=== PATIENT | female | born 1975 | race Caucasian/White ===

== ENCOUNTER 2018-09-29 12:08 | Emergency (ER) | payer OTHER ==
[2018-09-29 12:24] VITALS: BP 140/91; PULSE 71; O2SAT 97
--- NOTE | 2018-09-29 12:44 | ERPHSYRPT ---
- History of Present Illness Time Seen by Provider: 09/29/18 12:41 Source: patient Exam Limitations: no limitations Patient Subjective Stated Complaint: Fell down stairs and injured left knee Triage Nursing Assessment: Pt wheeled into the ER, unable to stand on left leg due to knee pain, hx of dislocating left knee cap, indention at the bottom of the knee cap, no swelling, pulses normal, vitals wnl, rates pain 8/10 Physician History: Fell down stairs and injured left knee unable to stand on left leg due to knee pain, hx of dislocating left knee cap, indention at the bottom of the knee cap, no swelling, Method of Injury: fell Occurred: just prior to arrival Quality: constant Severity of Pain-Max: moderate Severity of Pain-Current: moderate Lower Extremities Pain: knee: left Modifying Factors: Improves With: cold therapy Associated Symptoms: snapping sensation Allergies/Adverse Reactions: hydrocodone bitartrate [From Vicodin] Allergy (Mild, Verified 09/29/18 12:26) numbness Home Medications: Aspirin EC 81 mg [Ecotrin 81 mg] 81 mg PO DAILY 09/29/18 [History] Hx Tetanus, Diphtheria Vaccination/Date Given: Yes Hx Influenza Vaccination/Date Given: No Hx Pneumococcal Vaccination/Date Given: No - Review of Systems Constitutional: No Fever, No Chills Eyes: No Symptoms Ears, Nose, & Throat: No Symptoms Respiratory: No Cough, No Dyspnea Cardiac: No Chest Pain, No Edema, No Syncope Abdominal/Gastrointestinal: No Abdominal Pain, No Nausea, No Vomiting, No Diarrhea Genitourinary Symptoms: No Dysuria Musculoskeletal: Fall, Joint Pain, Joint Swelling, No Back Pain, No Neck Pain, No Joint Redness Skin: No Rash Neurological: No Dizziness, No Focal Weakness, No Sensory Changes Psychological: No Symptoms Endocrine: No Symptoms All Other Systems: Reviewed and Negative - Past Medical History Pertinent Past Medical History: No Neurological History: No Pertinent History ENT History: No Pertinent History Cardiac History: No Pertinent History Respiratory History: No Pertinent History Endocrine Medical History: No Pertinent History Musculoskeletal History: No Pertinent History GI Medical History: No Pertinent History History: No Pertinent History Psycho-Social History: No Pertinent History Female Reproductive Disorders: No Pertinent History Other Medical History: hx of cervical cancer - Past Surgical History Past Surgical History: Yes Musculoskeletal: Orthopedic Surgery Other Surgical History: scope on bilateral knees, dislocated knee cap on left - Social History Smoking Status: Never smoker Exposure to second hand smoke: No Drug Use: none Patient Lives Alone: No - Female History Hx Now: No - Nursing Vital Signs Nursing Vital Signs: Initial Vital Signs Temperature 97.9 F 09/29/18 12:10 Pulse Rate 71 09/29/18 12:10 Blood Pressure 140/91 09/29/18 12:10 O2 Sat by Pulse Oximetry 97 09/29/18 12:10 Pain Scale Pain Intensity 8 - Physical Exam General Appearance: no apparent distress Eyes, Ears, Nose, Throat Exam: normal ENT inspection Neck Exam: normal inspection Cardiovascular/Respiratory Exam: chest non-tender Gastrointestinal/Abdominal Exam: non-tender Back Exam: normal inspection Knees Exam: left knee: pain, soft tissue tenderness, swelling SpO2: 97 - Course Nursing assessment & vital signs reviewed: Yes - Radiology Exams Knee X-ray Interpretation: Reviewed by me Ordered Tests: Active Orders 24 hr Category Date Time Status KNEE (3 VIEWS) Stat Exams 09/29/18 12:51 Taken - Progress Progress: improved, pain not gone completely Counseled pt/family regarding: diagnosis, need for follow-up, rad results - Departure Departure Disposition: Home Clinical Impression: Patellar instability of left knee Condition: Stable Critical Care Time: No Referrals: JULIANO ROLAND [Primary Care Provider] - Instructions: Knee Sprain (DC), Patellar Tendinopathy (DC) Additional Instructions: Discharge/Care Plan ADY HOPKINS was seen on 09/29/18 in the Emergency Room. The patient was counseled regarding Diagnosis,Lab results, Imaging studies, need for follow up and when to return to the Emergency Room. Prescriptions given: Discharge Note I have spoken with the patient and/or caregivers. I have explained the patient' s condition, diagnosis and treatment plan based on the information available to me at this time. I have answered the patient's and/or caregiver's questions and addressed any concerns. The patient and/or caregivers have as good understanding of the patient's diagnosis, condition and treatment plan as can be expected at this point. The vital signs have been stable. The patient's condition is stable and appropriate for discharge from the emergency department. The patient will pursue further outpatient evaluation with the primary care physician or other designated or consulting physician as outlined in the discharge instructions. The patient and/or caregivers are agreeable to this plan of care and follow-up instructions have been explained in detail. The patient and/or caregivers have received these instruction. The patient/and or caregivers are aware that any significant change in condition or worsening of symptoms should prompt an immediate return to this or the closest emergency department or call 911.
--- NOTE | 2018-09-29 21:10 | XRAY ---
Indication: Pain following fall. Comparison: November 17, 2015. 3 views of the left knee now demonstrates mild medial joint space narrowing/spurring with stable fabella. No other bony, articular, or soft tissue abnormalities.
== END 2018-09-29 13:08 | disposition home or self-care (01) ==
LOC: ED 12:08
DX: M23.52 Chronic instability of knee, left knee (principal); W10.9XXA Fall (on) (from) unspecified stairs and steps, initial encounter
CPT/HCPCS: 73562; 99283; L1830

== ENCOUNTER 2019-02-13 20:05 | Emergency (ER) | payer BC ==
--- NOTE | 2019-02-13 21:27 | ERPHSYRPT ---
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 Triage Nursing Assessment: PT APPEARS FLUSHED, GAURDING ARM AND HOLDING HEAD STIFF. PT STATES PAIN IS 9/10 IN BACK OF NECK. Physician History: 43 y/o white females presents with left lateral neck and left post shoulder pain. pt was caring for and lifting grandchildren last couple of days. woke up yesterday and pain worse. pt was seen at [facility] and given steroid injection and steroid rx. sx not much better. no fever, no headache. no head or neck injury. Timing/Duration: day(s) (2) Severity: mild (mild to mod) Modifying Factors: Improves With: movement Associated Symptoms: No nausea, No vomiting, No abdominal pain, No shortness of breath, No chest pain, No headaches Allergies/Adverse Reactions: hydrocodone bitartrate [From Vicodin] Allergy (Mild, Verified 02/13/19 20:39) numbness Home Medications: Aspirin EC 81 mg [Ecotrin 81 mg] 81 mg PO DAILY 09/29/18 [History] Hx Tetanus, Diphtheria Vaccination/Date Given: Yes Hx Influenza Vaccination/Date Given: No Hx Pneumococcal Vaccination/Date Given: No - Review of Systems Constitutional: No Symptoms Eyes: No Symptoms Ears, Nose, & Throat: No Symptoms Respiratory: No Symptoms Cardiac: No Symptoms Abdominal/Gastrointestinal: No Symptoms Genitourinary Symptoms: No Symptoms Musculoskeletal: Neck Pain, Other (left post shoulder pain) Skin: No Symptoms Neurological: No Symptoms Psychological: No Symptoms Endocrine: No Symptoms Hematologic/Lymphatic: No Symptoms Immunological/Allergic: No Symptoms All Other Systems: Reviewed and Negative - Past Medical History Pertinent Past Medical History: No Neurological History: No Pertinent History ENT History: No Pertinent History Cardiac History: No Pertinent History Respiratory History: No Pertinent History Endocrine Medical History: No Pertinent History Musculoskeletal History: No Pertinent History GI Medical History: No Pertinent History History: No Pertinent History Psycho-Social History: No Pertinent History Female Reproductive Disorders: No Pertinent History Other Medical History: hx of cervical cancer - Past Surgical History Past Surgical History: Yes Musculoskeletal: Orthopedic Surgery Other Surgical History: scope on bilateral knees, dislocated knee cap on left - Social History Smoking Status: Never smoker Exposure to second hand smoke: No Drug Use: none Patient Lives Alone: No - Female History Hx Last Menstrual Period: 02/13/19 Hx Now: No - Nursing Vital Signs Nursing Vital Signs: Initial Vital Signs Temperature 98.1 F 02/13/19 20:29 Pulse Rate 72 02/13/19 20:29 Respiratory Rate 18 02/13/19 20:29 Blood Pressure 174/107 02/13/19 20:29 O2 Sat by Pulse Oximetry 96 02/13/19 20:29 Pain Scale Pain Intensity 9 - Physical Exam General Appearance: mild distress, alert, anxiety Eye Exam: PERRL/EOMI, eyes nml inspection Ears, Nose, Throat Exam: normal ENT inspection, moist mucous membranes Neck Exam: normal inspection, full range of motion, other (tenderness in distribution of left lateral neck and left trapezius muscle.), No midline tenderness Respiratory Exam: No chest tenderness Gastrointestinal/Abdomen Exam: No tenderness Pelvic Exam: not done Rectal Exam: not done, No decreased tone Back Exam: normal inspection, normal range of motion, No vertebral tenderness Extremity Exam: normal inspection, normal range of motion, pelvis stable Neurologic Exam: alert, oriented x 3, cooperative, superintendent transmission II-XII nml as tested Skin Exam: normal color, warm, dry Lymphatic Exam: No adenopathy SpO2 Interpretation: normal SpO2: 96 - Course Nursing assessment & vital signs reviewed: Yes Ordered Tests: Medication Summary Generic Name Dose Route Start Last Admin Trade Name Freq PRN Reason Stop Dose Admin Hydromorphone HCl 0.5 mg 02/13/19 21:30 Hydromorphone 1 Mg/Ml Ampule IM 02/13/19 21:31 STAT ONE Orphenadrine Citrate 30 mg 02/13/19 21:30 Norflex 60 Mg/2 Ml IM 02/13/19 21:31 STAT ONE - Progress Progress: improved Progress Note: 02/13/19 21:31 pt does not have a true allergy to hydrocodone. Counseled pt/family regarding: diagnosis, need for follow-up - Departure Departure Disposition: Home Clinical Impression: Musculoskeletal neck pain Condition: Stable Critical Care Time: No Referrals: JULIANO ROLAND [Primary Care Provider] - Additional Instructions: add tylenol for pain. continue steroids as prescribed. follow up with primary doctor for persistent symptoms Prescriptions: Carisoprodol 350 mg [Soma 350 mg] 350 mg PO Q8H PRN PRN #10 tablet PRN Reason: Muscle Spasms
[2019-02-13] MEDS ORDERED: Phenergan 25 MG INJ IM ONE (21:29)
[2019-02-13] MEDS ORDERED: Hydromorphone 1 mg/ml Ampule IM ONE (21:30)
[2019-02-13] MEDS ORDERED: Norflex 60 MG/2 ML IM ONE (21:30)
[2019-02-13] MEDS ORDERED: Hydromorphone 1 mg/ml Ampule ONE (21:35)
[2019-02-13] MEDS ORDERED: Norflex 60 MG/2 ML ONE (21:35)
[2019-02-13] MEDS ORDERED: Phenergan 25 MG INJ ONE (21:35)
[2019-02-13 22:03] VITALS: BP 144/84; PULSE 62; O2SAT 98
== END 2019-02-13 22:03 | disposition home or self-care (01) ==
LOC: ED 20:05
DX: M54.2 Cervicalgia (principal)
CPT/HCPCS: 96372; 99284; J1170; J2360; J2550

== ENCOUNTER 2019-02-17 10:19 | Emergency (ER) | payer BC ==
[2019-02-17] MEDS ORDERED: TORAdol 30 mg Injection IM ONE (10:40)
[2019-02-17] MEDS ORDERED: Norflex 60 MG/2 ML IM ONE (10:40)
[2019-02-17] MEDS ORDERED: TORAdol 30 mg Injection ONE (10:45)
[2019-02-17] MEDS ORDERED: Norflex 60 MG/2 ML ONE (10:45)
--- NOTE | 2019-02-17 10:49 | ERPHSYRPT ---
- History of Present Illness Time Seen by Provider: 02/17/19 10:47 Source: patient Exam Limitations: no limitations Patient Subjective Stated Complaint: Neck pain Triage Nursing Assessment: Patient ambulated into ED and transferred self to bed. Patient A+O X 3. Patient's skin pink, warm and dry. Patient complains of neck pain that radiates down left arm for one week. Patient has been seen by doctor and ER with no relief. Patient denies injury. No visible bruising to neck noted. Physician History: Neck pain for 1-2 weeks Patient complains of neck pain that radiates down left arm for one week. Patient has been seen by doctor and ER with no relief. Patient denies injury. No visible bruising to neck noted. Timing/Duration: day(s) Severity: moderate Associated Symptoms: other (pain in left arm) Allergies/Adverse Reactions: hydrocodone bitartrate [From Vicodin] Allergy (Mild, Verified 02/17/19 10:26) numbness Hx Tetanus, Diphtheria Vaccination/Date Given: Yes Hx Influenza Vaccination/Date Given: No Hx Pneumococcal Vaccination/Date Given: No Immunizations Up to Date: Yes - Review of Systems Constitutional: No Symptoms Eyes: No Symptoms Ears, Nose, & Throat: No Symptoms Respiratory: No Symptoms Cardiac: No Symptoms Abdominal/Gastrointestinal: No Symptoms Musculoskeletal: Neck Pain, Other (pain in left arm) - Past Medical History Pertinent Past Medical History: No Neurological History: No Pertinent History ENT History: No Pertinent History Cardiac History: No Pertinent History Respiratory History: No Pertinent History Endocrine Medical History: No Pertinent History Musculoskeletal History: No Pertinent History GI Medical History: No Pertinent History History: No Pertinent History Psycho-Social History: No Pertinent History Female Reproductive Disorders: No Pertinent History Other Medical History: hx of cervical cancer - Past Surgical History Past Surgical History: Yes Musculoskeletal: Orthopedic Surgery Other Surgical History: scope on bilateral knees, dislocated knee cap on left - Social History Smoking Status: Never smoker Exposure to second hand smoke: No Drug Use: none Patient Lives Alone: No - Female History Hx Now: No - Nursing Vital Signs Nursing Vital Signs: Initial Vital Signs Temperature 97.7 F 02/17/19 10:27 Pulse Rate 69 02/17/19 10:27 Respiratory Rate 18 02/17/19 10:27 Blood Pressure 174/112 02/17/19 10:27 O2 Sat by Pulse Oximetry 99 02/17/19 10:27 Pain Scale Pain Intensity 10 - Physical Exam General Appearance: no apparent distress, alert Eye Exam: PERRL/EOMI, eyes nml inspection Ears, Nose, Throat Exam: normal ENT inspection, TMs normal, pharynx normal, moist mucous membranes Neck Exam: normal inspection, non-tender, supple, full range of motion Respiratory Exam: normal breath sounds, lungs clear, No respiratory distress Cardiovascular Exam: regular rate/rhythm, normal heart sounds, normal peripheral pulses Gastrointestinal/Abdomen Exam: soft, normal bowel sounds, No tenderness, No mass Back Exam: normal inspection, normal range of motion, No CVA tenderness, No vertebral tenderness Extremity Exam: normal inspection, normal range of motion, pelvis stable Neurologic Exam: alert, oriented x 3, cooperative, normal mood/affect, nml cerebellar function, nml station & gait, sensation nml, No motor deficits Skin Exam: normal color, warm, dry, No rash Lymphatic Exam: No adenopathy SpO2: 99 - Course Nursing assessment & vital signs reviewed: Yes - Radiology Exams C-Spine X-ray Interpretation: Reviewed by me (narrowing of disc space C5-6) Ordered Tests: Active Orders 24 hr Category Date Time Status CERVICAL SPINE MINIMUM 4 VIEWS Stat Exams 02/17/19 10:40 Ordered Medication Summary Discontinued Medications Generic Name Dose Route Start Last Admin Trade Name Tony PRN Reason Stop Dose Admin Ketorolac Tromethamine 60 mg 02/17/19 10:40 02/17/19 10:46 Toradol 30 Mg Injection IM 02/17/19 10:41 60 mg STAT ONE Administration Ketorolac Tromethamine Confirm 02/17/19 10:45 Toradol 30 Mg Injection Administered 02/17/19 10:46 Dose 60 mg .ROUTE .STK-MED ONE Orphenadrine Citrate 60 mg 02/17/19 10:40 02/17/19 10:47 Norflex 60 Mg/2 Ml IM 02/17/19 10:41 60 mg STAT ONE Administration Orphenadrine Citrate Confirm 02/17/19 10:45 Norflex 60 Mg/2 Ml Administered 02/17/19 10:46 Dose 60 mg .ROUTE .STK-MED ONE - Progress Progress: improved, pain not gone completely Counseled pt/family regarding: diagnosis, need for follow-up, rad results - Departure Departure Disposition: Home Clinical Impression: Radicular pain in left arm, Cervical radiculopathy at C5 Condition: Stable Critical Care Time: No Referrals: JULIANO ROLAND [Primary Care Provider] - Instructions: Cervical Muscle Strain (DC), Radiculopathy (DC), Degenerative Disc Disease (DC) Additional Instructions: Discharge/Care Plan ADY HOPKINS was seen on 02/17/19 in the Emergency Room. The patient was counseled regarding Diagnosis,Lab results, Imaging studies, need for follow up and when to return to the Emergency Room. Prescriptions given: Discharge Note I have spoken with the patient and/or caregivers. I have explained the patient' s condition, diagnosis and treatment plan based on the information available to me at this time. I have answered the patient's and/or caregiver's questions and addressed any concerns. The patient and/or caregivers have as good understanding of the patient's diagnosis, condition and treatment plan as can be expected at this point. The vital signs have been stable. The patient's condition is stable and appropriate for discharge from the emergency department. The patient will pursue further outpatient evaluation with the primary care physician or other designated or consulting physician as outlined in the discharge instructions. The patient and/or caregivers are agreeable to this plan of care and follow-up instructions have been explained in detail. The patient and/or caregivers have received these instruction. The patient/and or caregivers are aware that any significant change in condition or worsening of symptoms should prompt an immediate return to this or the closest emergency department or call 911. Prescriptions: Cyclobenzaprine HCl 10 mg [Flexeril 10 MG] 10 mg PO TID #30 tablet
[2019-02-17 11:42] VITALS: BP 152/104; PULSE 60; O2SAT 100
--- NOTE | 2019-02-17 20:31 | XRAY ---
Indication: Neck pain. Stiffness. Left arm numbness. Comparison: None 5 views of the cervical spine demonstrates cervical lordotic reversal with moderate C5-C6 degenerative disc space loss with endplate spurring and subsequent bilateral foraminal stenosis. Incidental left lung apex calcified granuloma. No other bony, articular, or soft tissue abnormalities.
== END 2019-02-17 11:54 | disposition home or self-care (01) ==
LOC: ED 10:19
DX: M79.605 Pain in left leg (principal); M54.2 Cervicalgia; M54.12 Radiculopathy, cervical region
CPT/HCPCS: 72050; 96372; 99284; J1885; J2360; L0120

== ENCOUNTER 2020-12-08 05:59 | Day surgery (SDC) | payer OTHER ==
[2020-12-08] MEDS ORDERED: CEFAZOLIN 2 GM-D5W BAG** 2 GM/50 ML ML IV SCH (06:00)
[2020-12-08] MEDS ORDERED: Lactated Ringers 1,000 ML IV SCH (06:30)
[2020-12-08] MEDS ORDERED: Sodium Chloride 0.9% 1000 ML 1,000 ML ONE (07:42)
[2020-12-08] MEDS ORDERED: SUBLIMAZE 100 MCG/2 ML ONE ×2 (07:56→08:43)
[2020-12-08] MEDS ORDERED: Versed 2 MG/2 ML Injection ONE (07:57)
[2020-12-08] MEDS ORDERED: TORAdol 30 mg Injection ONE (07:58)
[2020-12-08] MEDS ORDERED: Decadron 4 MG INJ ONE (07:58)
[2020-12-08] MEDS ORDERED: DIPRIVAN 200 MG/20 ML IV ONE (07:58)
[2020-12-08] MEDS ORDERED: Zofran 4 MG/2 ML VIAL ONE (07:58)
[2020-12-08] MEDS ORDERED: Quelicin Fliptop 200 MG/10 ML ONE (08:08)
[2020-12-08] MEDS ORDERED: Lactated Ringers 1,000 ML IV ONE (08:45)
[2020-12-08] MEDS ORDERED: Compazine 10 MG/2 ML IV ONE (10:37)
[2020-12-08 10:46] VITALS: BP 121/75; PULSE 67; O2SAT 98
--- NOTE | 2020-12-09 08:20 | OP ---
SURGERY DATE/TIME: 12/08/2020 0758 PREOPERATIVE DIAGNOSIS: Abnormal uterine bleeding. POSTOPERATIVE DIAGNOSIS: Abnormal uterine bleeding. PROCEDURE: Hysteroscopy D&C with NovaSure ablation. SURGEON: Peña Manrique D.O. RESTAURANT GREETER: Reba Fuentes registered nurse surgical services. ANESTHESIA: General. ESTIMATED BLOOD LOSS: Minimal. COMPLICATIONS: None. INDICATIONS: The risks, benefits, indications and alternatives of the procedure were reviewed with the patient prior to procedure. The patient understood the risk of infection, bleeding, bowel injury, bladder injury, ureteral injury, uterine perforation, pelvic infection associated with the surgery and desires to have this surgery as a possible need to alleviate her current medical condition. DESCRIPTION OF PROCEDURE AND FINDINGS: At this point the patient is taken to the operating room, given general sedation, placed in dorsal lithotomy position, prepped and draped in the usual sterile fashion. A weighted speculum is then placed in the patient's vagina and the anterior lip of the cervix is grasped with a single tooth tenaculum. Endocervical dilators advanced through the endocervical canal as a means to dilate the cervix and the uterus was sounded to approximately 9 cm. From this point a hysteroscope was then placed in through the endocervical canal where visualization of the endometrial lining appeared to be within normal limits with no gross abnormalities. From this point the hysteroscope was removed and a curette was then placed into the fundus of the uterus and curettage was performed in all quadrants of the uterus retrieving a mild amount of tissue. From this point the NovaSure instrument was then placed into the fundus of the uterus with an in depth length of 6.5 cm and a width of 3.7 cm, was engaged and the machine was turned on for 1 minute and 1 second. At the completion of the ablation the instrument was disengaged and removed from the uterine cavity without complication. From this point all instruments were removed from the patient's vaginal region. The patient was then taken out of the dorsal lithotomy position, was taken out of anesthesia and was then taken to the recovery room in stable condition. All instruments and laps were accounted for x2.
== END 2020-12-08 11:06 | disposition home or self-care (01) ==
LOC: SDC 05:59
PROVIDERS: ATTEND Obstetrics & Gynecology
DX: N93.9 Abnormal uterine and vaginal bleeding, unspecified (principal)
CPT/HCPCS: 58558; 84703; 88305; 96374; J0330; J0690; J1100; J1885; J2250; J2405; J2704; J3010

== ENCOUNTER 2021-09-19 00:05 | Emergency (ER) | payer OTHER ==
[2021-09-19 01:32] VITALS: O2SAT 99
--- NOTE | 2021-09-19 01:44 | ERPHSYRPT ---
- History of Present Illness Source: patient Exam Limitations: no limitations Patient Subjective Stated Complaint: Left ankle pain, unable to stand on left foot due to this. [place] a pop while stepping to the side and has not been able to bear weight since. Triage Nursing Assessment: Left ankle pain present 06/13. No edema, erythema, or ecchymosis present. Bilateral pedal pulses present and equal. Physician History: 46 yo wf twisted L ankle at 21:00. Pt denies other/previous injury. Method of Injury: twisted Occurred: other (21:00) Quality: aching Severity of Pain-Max: moderate Severity of Pain-Current: moderate Lower Extremities Pain: ankle: left Modifying Factors: Improves With: movement Associated Symptoms: unable to bear weight, snapping sensation, popping sensation Allergies/Adverse Reactions: hydrocodone bitartrate [From Vicodin] Allergy (Mild, Verified 09/19/21 01:20) numbness Home Medications: Meloxicam 15 mg PO DAILY PRN PRN 12/08/20 [History] Aspirin 81 mg PO DAILY 09/19/21 [History] Hx Tetanus, Diphtheria Vaccination/Date Given: Yes Hx Influenza Vaccination/Date Given: No Hx Pneumococcal Vaccination/Date Given: No Travel Risk - International Travel Have you traveled outside of the country in past 3 weeks: No - Coronavirus Screening Are you exhibiting any of the following symptoms?: No Close contact with a COVID-19 positive Pt in past 14-21 Days: No - Vaccine Status Have you recieved a Covid-19 vaccination: No - Review of Systems Constitutional: No Symptoms Eyes: No Symptoms Ears, Nose, & Throat: No Symptoms Respiratory: No Symptoms Cardiac: No Symptoms Abdominal/Gastrointestinal: No Symptoms Genitourinary Symptoms: No Symptoms Skin: No Symptoms Neurological: No Symptoms Psychological: No Symptoms Endocrine: No Symptoms Hematologic/Lymphatic: No Symptoms Immunological/Allergic: No Symptoms - Past Medical History Pertinent Past Medical History: No Neurological History: No Pertinent History ENT History: No Pertinent History Cardiac History: No Pertinent History Respiratory History: No Pertinent History Endocrine Medical History: No Pertinent History Musculoskeletal History: Osteoarthritis GI Medical History: No Pertinent History History: No Pertinent History Psycho-Social History: No Pertinent History Female Reproductive Disorders: Abnormal Uterine Bleeding Other Medical History: 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 UTERINE ABLATION 11/2021. ARTHROSCOPIC SURGERY BILATERAL KNEE - 2013 AND 2008 - Past Surgical History Past Surgical History: Yes Neuro Surgical History: No Pertinent History Cardiac: No Pertinent History Respiratory: No Pertinent History Gastrointestinal: No Pertinent History Genitourinary: No Pertinent History Musculoskeletal: Orthopedic Surgery Female Surgical History: No Pertinent History Other Surgical History: scope on bilateral knees, dislocated knee cap on left - Social History Smoking Status: Former smoker How long have you smoked: unsure Exposure to second hand smoke: No Drug Use: none Patient Lives Alone: No Significant Family History: no pertinent family hx - Female History Hx Now: No - Nursing Vital Signs Nursing Vital Signs: Initial Vital Signs Temperature 98.8 F 09/19/21 01:22 Pulse Rate 70 09/19/21 01:22 Respiratory Rate 18 09/19/21 01:22 O2 Sat by Pulse Oximetry 99 09/19/21 01:22 Pain Scale Pain Intensity 4 WNL - Physical Exam General Appearance: no apparent distress Eyes, Ears, Nose, Throat Exam: normal ENT inspection, TMs normal, pharynx normal, moist mucous membranes Neck Exam: normal inspection, non-tender, supple, full range of motion, No Brudzinski, No Kernig's, No meningismus, No carotid bruit Cardiovascular/Respiratory Exam: normal breath sounds, regular rate/rhythm, heart sounds normal Gastrointestinal/Abdominal Exam: non-tender, soft Back Exam: normal inspection, normal range of motion, No vertebral tenderness Hips Exam: bilateral: non-tender, normal inspection, normal range of motion, no evidence of injury Legs Exam: bilateral leg: non-tender, normal inspection, normal range of motion, no evidence of injury Knees Exam: bilateral knee: non-tender, normal inspection, normal range of motion, no evidence of injury Ankle Exam: left ankle: soft tissue tenderness (L ankle w mild edema/TTP laterally and medially/Good pedal pulse, distal sensation, and capillary return) Foot Exam: bilateral foot: non-tender, normal inspection, normal range of motion, no evidence of injury Neuro/Tendon Exam: normal sensation, normal motor functions, normal tendon functions, responds to pain Mental Status Exam: alert, oriented x 3, cooperative Skin Exam: normal color, warm, dry SpO2 Interpretation: normal SpO2: 99 O2 Delivery: Room Air - Course Nursing assessment & vital signs reviewed: Yes - Radiology Exams Ankle X-ray Interpretation: Interpreted by me (L ankle neg per ER read) Ordered Tests: Active Orders 24 hr Category Date Time Status Kee Bandage Application -[facility] STAT Care 09/19/21 02:09 Completed Crutches STAT Care 09/19/21 02:10 Completed ANKLE (3 VIEWS) Stat Exams 09/19/21 01:55 Taken - Progress Progress Note: 09/19/21 02:10 Pt refused all pain meds-po and IM Kee wrap L ankle per nursing/NVI Crutches per nursing Counseled pt/family regarding: diagnosis, need for follow-up, rad results - Departure Departure Disposition: Home Clinical Impression: Left ankle sprain Condition: Stable Critical Care Time: No Referrals: CLAUDIA GUAMAN NP [Primary Care Provider] - Follow up/PCP as directed MARCO A JOHN DPM [ACTIVE STAFF] - Follow up/PCP as directed Instructions: Ankle Sprain (DC) Additional Instructions: Ice for 12-24 hours Motrin/Tylenol for pain Weight bearing as tolerated Kee wrap for 3-4 days Follow up with your family or Dr. Viera
[2021-09-19 02:39] VITALS: BP 149/97; PULSE 67
--- NOTE | 2021-09-19 07:47 | XRAY ---
Indication: Pain following twisting injury. Comparison: None 3 view left ankle demonstrates small plantar heel spur. No other bony, articular, or soft tissue abnormalities.
== END 2021-09-19 02:40 | disposition home or self-care (01) ==
LOC: ED 00:05
DX: S93.402A Sprain of unspecified ligament of left ankle, initial encounter (principal); X50.0XXA Overexertion from strenuous movement or load, initial encounter; M25.572 Pain in left ankle and joints of left foot; Z79.899 Other long term (current) drug therapy; Z28.310 Unvaccinated for COVID-19
CPT/HCPCS: 73610; 99283

== ENCOUNTER 2021-10-22 21:29 | Emergency (ER) | payer OTHER ==
--- NOTE | 2021-10-22 22:29 | ERPHSYRPT ---
- History of Present Illness Historian: patient Exam Limitations: no limitations Patient Subjective Stated Complaint: PT STATES SHE HAS BEEN HAVING ABDOMINAL CRAMPING IN LOWER ABDOMEN AND LEFT SIDE OF BACK, STATES SHE IS CONCERNED ABOUT AN OVARIAN CYST THAT SHE BELEIVES MAY HAVE RUPTURED BECAUSE SHE SUDDENLY FELT A GUSH OF BLOOD FROM HER VAGINAL AREA. PT STATES SH HAS PAIN 8/10 IN ABDOMEN. Triage Nursing Assessment: PT ALERT AND ORIENTED, ABLE TO ANSWER ALL QUESTIONS A PPROPRIATLY , APPEARS FLUSHED IN THE FACE, STATES SHE IS HAVING ABDOMINAL CRAMPING AND PAIN AT THIS TIME. Physician History: 46 yo wf w LLQ pain x 2 days which is described as cramping and 7/10 on scale. The pain radiates to her L flank and nothing makes it better or worse. She has nausea wo vomiting/diarrhea/melena/hematochezia/dysuria/hematuria. Pt states that she has mild vaginal bleeding. Timing/Duration: other (2 days) Activities at Onset: rest Quality: cramping Abdominal Pain Onset Location: LLQ Pain Radiation: flank Severity of Pain-Max: severe Severity of Pain-Current: moderate Modifying Factors: Improves With: nothing Associated Symptoms: back, loss of appetite, nausea, No chest pain, No diaphoresis, No diarrhea, No fever/chills, No fatigue, No headache, No heartburn, No neck pain, No rash, No shortness of breath, No syncope, No vomiting, No weakness Previous symptoms: no prior history Allergies/Adverse Reactions: hydrocodone bitartrate [From Vicodin] Allergy (Mild, Verified 09/19/21 01:20) numbness Home Medications: Meloxicam 15 mg PO DAILY PRN PRN 12/08/20 [History] Aspirin 81 mg PO DAILY 09/19/21 [History] Hx Tetanus, Diphtheria Vaccination/Date Given: Yes Hx Influenza Vaccination/Date Given: No Hx Pneumococcal Vaccination/Date Given: No Travel Risk - International Travel Have you traveled outside of the country in past 3 weeks: No - Coronavirus Screening Are you exhibiting any of the following symptoms?: No Close contact with a COVID-19 positive Pt in past 14-21 Days: No - Vaccine Status Have you recieved a Covid-19 vaccination: No - Review of Systems Constitutional: No Symptoms Eyes: No Symptoms Ears, Nose, & Throat: No Symptoms Respiratory: No Symptoms Cardiac: No Symptoms Abdominal/Gastrointestinal: No Symptoms, Abdominal Pain, Nausea Genitourinary Symptoms: No Symptoms, Vaginal Bleeding Musculoskeletal: No Symptoms Skin: No Symptoms Neurological: No Symptoms Psychological: No Symptoms Endocrine: No Symptoms Hematologic/Lymphatic: No Symptoms Immunological/Allergic: No Symptoms - Past Medical History Pertinent Past Medical History: No Neurological History: No Pertinent History ENT History: No Pertinent History Cardiac History: No Pertinent History Respiratory History: No Pertinent History Endocrine Medical History: No Pertinent History Musculoskeletal History: Osteoarthritis GI Medical History: No Pertinent History History: No Pertinent History Psycho-Social History: No Pertinent History Female Reproductive Disorders: Abnormal Uterine Bleeding Other Medical History: 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 UTERINE ABLATION 11/2021. ARTHROSCOPIC SURGERY BILATERAL KNEE - 2013 AND 2007 - Past Surgical History Past Surgical History: Yes Neuro Surgical History: No Pertinent History Cardiac: No Pertinent History Respiratory: No Pertinent History Gastrointestinal: No Pertinent History Genitourinary: No Pertinent History Musculoskeletal: Orthopedic Surgery Female Surgical History: No Pertinent History Other Surgical History: scope on bilateral knees, dislocated knee cap on left - Social History Smoking Status: Former smoker How long have you smoked: unsure Exposure to second hand smoke: No Drug Use: none Patient Lives Alone: No Significant Family History: no pertinent family hx - Female History Hx Last Menstrual Period: 10/04/20 HAD ABLASION Hx Now: No - Nursing Vital Signs Nursing Vital Signs: Initial Vital Signs Temperature 97.6 F 10/22/21 21:58 Pulse Rate 79 10/22/21 21:58 Respiratory Rate 18 10/22/21 21:58 Blood Pressure 152/88 10/22/21 21:58 O2 Sat by Pulse Oximetry 100 10/22/21 21:58 Pain Scale Pain Intensity 0 Hypertensive - Physical Exam General Appearance: no apparent distress Eye Exam: PERRL/EOMI, eyes nml inspection Ears, Nose, Throat Exam: normal ENT inspection, TMs normal, pharynx normal, moist mucous membranes Neck Exam: normal inspection, non-tender, supple, full range of motion, No meningismus, No mass, No Brudzinski, No Kernig's Respiratory Exam: normal breath sounds, lungs clear, airway intact, No respiratory distress Cardiovascular Exam: regular rate/rhythm, normal heart sounds, normal peripheral pulses, capillary refill <2 sec, No murmur Gastrointestinal/Abdomen Exam: soft, normal bowel sounds, tenderness (LLQ mode rately TTP wo guarding or rebound) Back Exam: normal inspection, normal range of motion, No CVA tenderness, No vertebral tenderness Extremity Exam: normal inspection, normal range of motion Neurologic Exam: alert, oriented x 3, cooperative, 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 as tested, normal mood/affect, nml cerebellar function, nml station & gait, sensation nml, No motor deficits, No sensory deficit Skin Exam: normal color, warm, dry Lymphatic Exam: No adenopathy SpO2 Interpretation: normal SpO2: 100 O2 Delivery: Room Air - Course Nursing assessment & vital signs reviewed: Yes - CT Exams Abdomen/Pelvis CT Interpretation: Tele-radiologist Report (CT ab-pelvis wo contrast/Nothing acute pe rtelerad) Ordered Tests: Active Orders 24 hr Category Date Time Status ABDOMEN AND PELVIS W/0 CONTRAS [CT] Stat Exams 10/22/21 23:02 Taken AMYLASE Stat Lab 10/22/21 22:25 Completed CBC W DIFF Stat Lab 10/22/21 22:25 Completed CMP Stat Lab 10/22/21 22:25 Completed CULTURE,URINE Stat Lab 10/22/21 22:44 Received HCG QUALITATIVE,SERUM Stat Lab 10/22/21 22:25 Completed LIPASE Stat Lab 10/22/21 22:25 Completed UA W/RFX CULTURE Stat Lab 10/22/21 22:44 Completed Medication Summary Discontinued Medications Generic Name Dose Route Start Last Admin Trade Name Freq PRN Reason Stop Dose Admin Ketorolac Tromethamine 15 mg 10/22/21 23:48 10/22/21 23:49 Ketorolac Tromethamine 30 Mg/Ml Inj IV 10/22/21 23:49 15 mg STAT ONE Administration Ketorolac Tromethamine Confirm 10/22/21 23:48 Ketorolac Tromethamine 30 Mg/Ml Inj Administered 10/22/21 23:49 Dose 30 mg .ROUTE .STK-MED ONE Trimethoprim/Sulfamethoxazole 1 tab 10/23/21 00:54 10/23/21 00:58 Smz/Tmp Ds Tablet 1 Tablet PO 10/23/21 00:55 1 tab STAT STA Administration Trimethoprim/Sulfamethoxazole Confirm 10/23/21 00:57 Smz/Tmp Ds Tablet 1 Tablet Administered 10/23/21 00:58 Dose 1 tab PO .STK-MED ONE Lab/Rad Data: Laboratory Result Diagrams 10/22/21 22:25 10/22/21 22:25 Laboratory Results 10/22/21 10/22/21 10/22/21 Range/Units 22:44 22:25 22:25 WBC (4.0-10.5) x10^3/uL RBC (4.1-5.4) x10^6/uL Hgb (12.0-16.0) g/dL Hct (35-47) % MCV (78-100) fL MCH (26-32) pg MCHC (32-36) g/dL RDW (11.5-14.0) % Plt Count (150-450) x10^3/uL MPV (7.5-11.0) fL Gran % (36.0-66.0) % Immature Gran % (Auto) (0.00-0.4) % Nucleat RBC Rel Count (0.00-0.1) % Eos # (Auto) (0-0.5) x10^3/uL Immature Gran # (Auto) (0.00-0.03) x10^3u/L Absolute Lymphs (auto) (1.0-4.6) x10^3/uL Absolute Monos (auto) (0.0-1.3) x10^3/uL Absolute Nucleated RBC (0.00-0.01) x10^3u/L Lymphocytes % (24.0-44.0) % Monocytes % (0.0-12.0) % Eosinophils % (0.00-5.0) % Basophils % (0.0-0.4) % Absolute Granulocytes (1.4-6.9) x10^3/uL Basophils # (0-0.4) x10^3/uL Sodium 138 (137-145) mmol/L Potassium 4.1 (3.5-5.1) mmol/L Chloride 103 (98-107) mmol/L Carbon Dioxide 30 (22-30) mmol/L Anion Gap 8.7 (5-15) MEQ/L BUN 13 (7-17) mg/dL Creatinine 0.75 (0.52-1.04) mg/dL Estimated GFR > 60.0 ML/MIN Glucose 115 H (74-106) mg/dL Calcium 9.3 (8.4-10.2) mg/dL Total Bilirubin 0.50 (0.2-1.3) mg/dL AST 20 (14-36) U/L ALT 15 (0-35) U/L Alkaline Phosphatase 86 (38-126) U/L Serum Total Protein 7.1 (6.3-8.2) g/dL Albumin 4.4 (3.5-5.0) g/dL Amylase 81 (30-110) U/L Lipase 69 (23-300) U/L Serum , Qual NEGATIVE (Negative) Urinalys Dipstick Clnc MAIN LAB Urine Color PINK (YELLOW) Urine Appearance SLIGHTLY CLOUDY (CLEAR) Urine pH 6.0 (5-6) Ur Specific [place] 1.025 (1.005-1.025) POC Urine Protein Conf 100 (Negative) Urine Ketones NEGATIVE (NEGATIVE) Urine Nitrite NEGATIVE (NEGATIVE) Urine Bilirubin NEGATIVE (NEGATIVE) Urine Urobilinogen 1 (0-1) mg/dL Urine Leukocytes TRACE (NEGATIVE) Urine WBC (Auto) 26-50 (0-5) /HPF Urine RBC (Auto) >101 (0-2) /HPF U Epithel Cells (Auto) FEW (FEW) /HPF Urine Bacteria (Auto) RARE (NEGATIVE) /HPF Urine RBC LARGE (0-5) Vishal/ul Urine Mucus (Auto) SLIGHT (NEGATIVE) /HPF Ur Culture Indicated? YES Urine Glucose NEGATIVE (NEGATIVE) mg/dL 10/22/21 Range/Units 22:25 WBC 9.0 (4.0-10.5) x10^3/uL RBC 4.83 (4.1-5.4) x10^6/uL Hgb 13.6 (12.0-16.0) g/dL Hct 41.2 (35-47) % MCV 85.3 (78-100) fL MCH 28.2 (26-32) pg MCHC 33.0 (32-36) g/dL RDW 12.6 (11.5-14.0) % Plt Count 228 (150-450) x10^3/uL MPV 11.6 H (7.5-11.0) fL Gran % 70.8 H (36.0-66.0) % Immature Gran % (Auto) 0.4 (0.00-0.4) % Nucleat RBC Rel Count 0.0 (0.00-0.1) % Eos # (Auto) 0.16 (0-0.5) x10^3/uL Immature Gran # (Auto) 0.04 H (0.00-0.03) x10^3u/L Absolute Lymphs (auto) 1.60 (1.0-4.6) x10^3/uL Absolute Monos (auto) 0.77 (0.0-1.3) x10^3/uL Absolute Nucleated RBC 0.00 (0.00-0.01) x10^3u/L Lymphocytes % 17.8 L (24.0-44.0) % Monocytes % 8.6 (0.0-12.0) % Eosinophils % 1.8 (0.00-5.0) % Basophils % 0.6 (0.0-0.4) % Absolute Granulocytes 6.37 (1.4-6.9) x10^3/uL Basophils # 0.05 (0-0.4) x10^3/uL Sodium (137-145) mmol/L Potassium (3.5-5.1) mmol/L Chloride (98-107) mmol/L Carbon Dioxide (22-30) mmol/L Anion Gap (5-15) MEQ/L BUN (7-17) mg/dL Creatinine (0.52-1.04) mg/dL Estimated GFR ML/MIN Glucose (74-106) mg/dL Calcium (8.4-10.2) mg/dL Total Bilirubin (0.2-1.3) mg/dL AST (14-36) U/L ALT (0-35) U/L Alkaline Phosphatase (38-126) U/L Serum Total Protein (6.3-8.2) g/dL Albumin (3.5-5.0) g/dL Amylase (30-110) U/L Lipase (23-300) U/L Serum , Qual (Negative) Urinalys Dipstick Clnc Urine Color (YELLOW) Urine Appearance (CLEAR) Urine pH (5-6) Ur Specific [place] (1.005-1.025) POC Urine Protein Conf (Negative) Urine Ketones (NEGATIVE) Urine Nitrite (NEGATIVE) Urine Bilirubin (NEGATIVE) Urine Urobilinogen (0-1) mg/dL Urine Leukocytes (NEGATIVE) Urine WBC (Auto) (0-5) /HPF Urine RBC (Auto) (0-2) /HPF U Epithel Cells (Auto) (FEW) /HPF Urine Bacteria (Auto) (NEGATIVE) /HPF Urine RBC (0-5) Vishal/ul Urine Mucus (Auto) (NEGATIVE) /HPF Ur Culture Indicated? Urine Glucose (NEGATIVE) mg/dL - Progress Progress: improved Progress Note: 10/23/21 00:51 15mg IV Toradol 10/23/21 00:55 Pain improved w 15mg IV Toradol Bactrim DS po x1 Counseled pt/family regarding: lab results, diagnosis, need for follow-up, rad results - Departure Departure Disposition: Home Clinical Impression: UTI (urinary tract infection), Abdominal pain Condition: Stable Critical Care Time: No Referrals: CLAUDIA GUAMAN, EMIL [Primary Care Provider] - Follow up/PCP as directed JAMAL MANRIQUE DO [ACTIVE STAFF] - Follow up/PCP as directed Instructions: Urinary Tract Infection, Adult (DC), Severe Abdominal Pain, Adult (DC) Additional Instructions: Follow up with Dr. Manrique Continue with Bactrim in the morning Return to ER for increasing pain or temperature greater than 100.5 Prescriptions: Sulfamethoxazole/Trimethoprim [Bactrim Ds Tablet] 1 each PO BID 5 Days #10 tablet
[2021-10-22 22:32] LABS: Absolute Neutrophil Ct (ANC) 6.37 x10^3/uL (1.4-6.9); Basophil (Absolute #) 0.05 x10^3/uL (0-0.4); Eosinophil % 1.8 % (0.00-5.0); Eosinophil (Absolute #) 0.16 x10^3/uL (0-0.5); Hematocrit 41.2 % (35-47); Hemoglobin 13.6 g/dL (12.0-16.0); Lymphocytes % 17.8 % (24.0-44.0); Mean Cell Volume 85.3 fL (78-100); Mean Corpuscular Hemoglobin 28.2 pg (26-32); Mean Platelet Volume 11.6 fL (7.5-11.0); Monocyte (Absolute #) 0.77 x10^3/uL (0.0-1.3); Monocytes % 8.6 % (0.0-12.0); Neutrophil % 70.8 % (36.0-66.0); Platelet Count 228 x10^3/uL (150-450); Red Blood Count 4.83 x10^6/uL (4.1-5.4); Red Cell Distribution Width 12.6 % (11.5-14.0)
[2021-10-22 22:45] LABS: ALBUMIN 4.4 g/dL (3.5-5.0); ALKALINE PHOSPHATASE 86 U/L (38-126); AMYLASE 81 U/L (30-110); ANION GAP 8.7 MEQ/L (5-15); BLOOD UREA NITROGEN 13 mg/dL (7-17); CHLORIDE 103 mmol/L (98-107); Calcium 9.3 mg/dL (8.4-10.2); Carbon Dioxide 30 mmol/L (22-30); Creatinine 1 0.75 mg/dL (0.52-1.04); EST GLOMERULAR FILTRATION RATE > 60.0 ML/MIN; Glucose 115 mg/dL (74-106); LIPASE 69 U/L (23-300); Potassium 4.1 mmol/L (3.5-5.1); SGOT/AST 20 U/L (14-36); SGPT/ALT 15 U/L (0-35); SODIUM 138 mmol/L (137-145); Total Protein 7.1 g/dL (6.3-8.2)
[2021-10-22 22:54] LABS: Appearance SLIGHTLY CLOUDY (CLEAR); Bacteria RARE /HPF (NEGATIVE); Bilirubin NEGATIVE (NEGATIVE); Epithelial Cells FEW /HPF (FEW); Glucose NEGATIVE (NEGATIVE); Ketones NEGATIVE (NEGATIVE); Mucus SLIGHT /HPF (NEGATIVE); RBC LARGE Ery/ul (0-5); Specific Gravity 1.025 (1.005-1.025); WBC 26-50 /HPF (0-5)
[2021-10-22 22:55] LABS: Dipstick done @ ? MAIN LAB; Nitrite NEGATIVE (NEGATIVE); Protein,Urine Dip 100 (Negative); RBC >101 /HPF (0-2); Urine Cultured Indicated? YES; Urobilinogen 1 mg/dL (0-1)
[2021-10-22] MEDS ORDERED: TORAdol 30 mg Injection IV ONE (23:48)
[2021-10-22] MEDS ORDERED: TORAdol 30 mg Injection ONE (23:48)
[2021-10-23] MEDS ORDERED: BACTRIM DS TABLET PO STA (00:54)
[2021-10-23 00:57] VITALS: O2SAT 100
[2021-10-23] MEDS ORDERED: BACTRIM DS TABLET PO ONE (00:57)
[2021-10-23 01:18] VITALS: BP 119/75; PULSE 66
--- NOTE | 2021-10-23 07:01 | XRAY ---
Indication: Blood in urine. UTI. Abdomen pressure and vaginal bleeding. Multiple contiguous axial images obtained through the abdomen and pelvis without contrast. Comparison: None Lung bases clear of infiltrate and effusion. Heart not enlarged. Small hiatal hernia. Stomach distended with food. Noncontrasted stomach and bowel loops appear nonobstructed with normal air-filled appendix. Mild sigmoid diverticulosis without diverticulitis. No free fluid/air. Gallbladder contracted without gallstones. Remaining liver, gallbladder, pancreas, spleen, adrenal glands, kidneys, ureters, bladder, uterus, and aorta are unremarkable for noncontrast exam. Osseous structures intact with mild degenerative changes throughout the spine and both hips. Impression: 1. Sigmoid diverticulosis and small hiatal hernia. 2. Remaining CT abdomen/pelvis without contrast exam is negative. Comment: Preliminary interpretation made by [facility]. No critical discrepancy.
== END 2021-10-23 01:17 | disposition home or self-care (01) ==
LOC: ED 21:29
DX: N39.0 Urinary tract infection, site not specified (principal); R10.32 Left lower quadrant pain; R11.0 Nausea; Z28.310 Unvaccinated for COVID-19
CPT/HCPCS: 36415; 74176; 80053; 81015; 82150; 83690; 84703; 85025; 87086; 96374; 99283; J1885; A9270-GY